=== PATIENT | male | born 1990 | race Caucasian/White ===

== ENCOUNTER 2018-09-07 00:40 | Emergency (ER) | payer MEDICAID ==
[2018-09-07] MEDS ORDERED: PENICILLIN VK 250MG PREPACK#6 BTL TAKEHOME ONE (01:30)
[2018-09-07] MEDS ORDERED: IBUPROFEN 800 MG TAB PO ONE (01:30)
[2018-09-07] MEDS ORDERED: PENICILLIN VK 500 MG TAB PO ONE (01:30)
--- NOTE | 2018-09-07 01:34 | EDPHY ---
H & P Stated Complaint: Dental Pain Time Seen by Provider: 09/07/18 01:31 HPI/ROS: HPI CHIEF COMPLAINT: Right posterior molar dental pain. HISTORY OF PRESENT ILLNESS: 28-year-old male, otherwise healthy does have a history of anxiety, presents emergency room with dental pain. Patient reports to me that his right posterior molar tooth number 32 is giving him great discomfort. It has been happening for few days. Getting worse. No swelling. No fever. He does have a dentist. Previously had a filling to this. He presents emergency room for further pain. Past Medical History: Denies significant medical history except for anxiety Past Surgical History: Denies significant surgical history Social History: Denies drugs alcohol tobacco. Family History: Noncontributory ROS REVIEW OF SYSTEMS: 10 Systems were reviewed and negative with the exception of the elements mentioned in the history of present illness. Exam Constitutional triage nursing summary reviewed, vital signs reviewed, awake/ alert. Eyes normal conjunctivae and sclera, EOMI, PERRLA. HENT right posterior molar tooth number 32: Intact, no gumline abscess, mildly tender palpation, no [employer] RPA, no evidence of gumline infection or ANUG, no signs of Hi's, normal inspection, atraumatic, moist mucus membranes, no epistaxis, neck supple/ no meningismus, no raccoon eyes. Respiratory clear to auscultation bilaterally, normal breath sounds, no respiratory distress, no wheezing. Cardiovascular rate normal, regular rhythm, no murmur, no edema, distal pulses normal. Gastrointestinal soft, non-tender, no rebound, no guarding, normal bowel sounds, no distension, no pulsatile mass. Genitourinary no CVA tenderness. Musculoskeletal no midline vertebral tenderness, full range of motion, no calf swelling, no tenderness of extremities, no meningismus, good pulses, neurovascularly intact. Skin pink, warm, & dry, no rash, skin atraumatic. Neurologic awake, alert and oriented x 3, AAOx3, moves all 4 extremities equally, motor intact, sensory intact, CN II-XII intact, normal cerebellar, normal vision, normal speech. Psychiatric normal mood/affect. Heme/Lymph/Immune no lymphadenopathy. Differential Diagnosis: Includes but is not limited to in a particular order dental caries, dental infection, apical abscess, pulpitis Medical Decision Making: Plan for this patient pen VK, ibuprofen 800 mg for pain control, recommend close follow-up with a dentist. Discussed this at length the patient is comfortable this plan. Re-evaluation: Prescription be provided for pen VK, ibuprofen 800 mg 1st dose given in the emergency room. Dental resources provided. Return precautions discussed with the patient understands return emergency room if has worsening pain, fever, swelling, not doing well. He is comfortable this plan. Source: Patient - Personal History Current Tetanus/Diphtheria Vaccine: Yes Current Tetanus Diphtheria and Acellular Pertussis (TDAP): Yes - Medical/Surgical History Hx Asthma: No Hx Chronic Respiratory Disease: No Hx Diabetes: No Hx Cardiac Disease: No Hx Renal Disease: No Hx Cirrhosis: No Hx Alcoholism: No Hx HIV/AIDS: No Hx Splenectomy or Spleen Trauma: No Other PMH: Anxiety - Social History Smoking Status: Never smoked Constitutional: Initial Vital Signs Temperature (C) 36.7 C 09/07/18 00:43 Heart Rate 58 L 09/07/18 00:43 Respiratory Rate 16 09/07/18 00:43 Blood Pressure 129/71 H 09/07/18 00:43 O2 Sat (%) 98 09/07/18 00:43 O2 Delivery Mode Room Air Allergies/Adverse Reactions: No Known Allergies Allergy (Unverified 09/07/18 00:43) Home Medications: Medication Instructions Recorded Citalopram 09/07/18 Ibuprofen [Motrin (*)] 800 mg PO Q6-8PRN #7 tab 09/07/18 Penicillin V Potassium [Penicillin 500 mg PO BID #14 tab 09/07/18 VK] Departure - Departure Disposition: Home, Routine, Self-Care Clinical Impression: Pain, dental Condition: Good Instructions: Toothache (ED) Additional Instructions: 1. Antibiotics as prescribed. 2. Ibuprofen with food not on an empty stomach. 3. Return to the emergency room if you have worsening pain 4. Follow-up with dentistry. Referrals: Krista Jaime MD [Primary Care Provider] - As per Instructions [facility] [Outside] - As per Instructions [facility] [Outside] - As per Instructions Dental [facility] [Outside] - As per Instructions Dental [facility] [Outside] - As per Instructions Dental [facility] [Outside] - As per Instructions Prescriptions: Ibuprofen [Motrin (*)] 800 mg PO Q6-8PRN #7 tab Penicillin V Potassium [Penicillin VK] 500 mg PO BID #14 tab
[2018-09-07 01:52] VITALS: BP 133/65
== END 2018-09-07 01:49 | disposition home or self-care (01) ==
DX: K08.89 Other specified disorders of teeth and supporting structures (principal)